=== PATIENT | female | born 1995 | race Two or more races ===

== ENCOUNTER → 2025-01-11 | Outpatient (CLI) | payer BC ==
[2025-01-11 11:45] LABS: Basophils # (auto) 0.1 10 ^3/uL (0-0.2); Basophils % (auto) 0.7 % (0.0-2.0); Eosinophils # (auto) 0.2 10 ^3/uL (0-0.8); Eosinophils % (auto) 1.8 % (0.0-7.0); Hematocrit 41.1 % (36.0-46.0); Hemoglobin 14.5 g/dL (12.2-16.2); Lymphocytes # (auto) 2.5 10 ^3/uL (0.4-5.4); Lymphocytes % (auto) 20.1 % (10.0-50.0); Mean Corpuscular Hemoglobin 31.4 pg (28.0-32.0); Mean Corpuscular Hgb Conc. 35.2 g/dL (32.0-36.0); Mean Corpuscular Volume 89.3 fL (80.0-100.0); Monocytes # (auto) 0.7 10 ^3/uL (0-1.3); Monocytes % (auto) 5.6 % (0.0-12.0); Neutrophils # (auto) 8.9 10 ^3/uL (1.6-8.6); Neutrophils % (auto) 71.8 % (37.0-80.0); Platelet Count (auto) 310 10^3/uL (140-450); Red Cell Distribution Width 12.5 % (11.8-14.3); White Blood Cell 12.4 10^3/uL (4.4-10.8)
[2025-01-11 11:46] LABS: Urine Bacteria FEW /hpf (None Seen); Urine Blood Negative /uL (Negative); Urine Clarity Clear (Clear); Urine Color Light-Yellow (Yellow); Urine Mucus FEW (None Seen); Urine Protein, UAD Negative (Negative); Urine Specific Gravity 1.012 (1.001-1.035); Urine Squamous Epithelial Cell FEW /hpf (<5); Urine Urobilinogen Normal (Negative); Urine WBC 3 /HPF (0-5)
[2025-01-11 12:02] LABS: Alanine Aminotransferase 30 U/L (7-40); Alkaline Phosphatase 53 U/L (46-116); Anion Gap 12 (5-15); Aspartate Aminotransferase 18 U/L (13-40); BUN/Creatinine Ratio 8.2 (10.0-20.0); Carbon Dioxide 21 mmol/L (20-31); Chloride 103 mmol/L (98-107); Glucose 81 mg/dL (74-106); Potassium 3.7 mmol/L (3.5-5.1); Sodium 136 mmol/L (136-145); Triglycerides 146 mg/dL (< 150)
[2025-01-11 12:03] LABS: Bilirubin, Total 0.9 mg/dL (0.2-1.0)
[2025-01-11 12:04] LABS: Thyroid Stimulating Hormone 1.19 uIU/mL (0.55-4.78)
[2025-01-11 12:05] LABS: Albumin 4.9 g/dL (3.2-4.8); Blood Urea Nitrogen 5 mg/dL (9-23); Calcium 10.7 mg/dL (8.7-10.4); Cholesterol 238 mg/dL (< 200); HDL Cholesterol 69 mg/dL (40-59); LDL Cholesterol 160 mg/dL (< 100)
[2025-01-11 12:14] LABS: Beta HCG, Quantitative 88572.6 mIU/mL (1.5-4.2)
[2025-01-13 04:06] LABS: Chlamydia Trachomatis, NAA Negative (Negative); Neisseria gonorrhoeae, NAA Negative (Negative)
== END | disposition home or self-care (01) ==
LOC: LAB 10:49
PROVIDERS: ATTEND Nurse Practitioner Family
DX: Z32.01 Encounter for pregnancy test, result positive (principal)
CPT/HCPCS: 36415; 80053; 80061; 81001; 81025; 83036; 84443; 84702; 85025; 86703; 86762; 86780; 86850; 86900; 86901; 87086; 87340; 87902

== ENCOUNTER 2025-03-12 09:16 | Observation (INO) | payer BC ==
[2025-03-12 11:16] LABS: Vaginal Bacteria Many; Vaginal Clue Cells Few; Vaginal Epithelial Cells Many; Vaginal Trichomonas Not Present
[2025-03-12] MEDS ORDERED: METR-344 PO ×2 (11:28→12:12)
--- NOTE | 2025-03-12 16:18 | DVHDS2 ---
Physician Discharge Progress N Final Diagnosis: BV Problems List: (1) 22 weeks gestation of (2) Bacterial vaginosis in Operations or Procedures: Operations or Procedures S: 29yo IUP@22.3wks presents to OB triage with c/o leaking of fluid this morning. Denies VB/CARRILLO/vision changes/RUQ pain. Endorses +FM. Denies sex in the last [address] Carter, uncomplicated. O: VSS FHTs 140 SSE by RN: negative pooling and nitrazine Laboratory Tests Test 03/12/25 09:50 Range/Units Placental Qlcec-0-Nhhihewtxclhd Negative Vaginal WBC (Wet Prep) Many Vaginal RBC (Wet Prep) Rare Vaginal Epithelial Cells (Wet Prep) Many Vaginal Bacteria (Wet Prep) Many Vaginal Trichomonas (Wet Prep) Not present Vaginal Yeast (Wet Prep) None seen Vaginal Clue Cells (Wet Prep) Few A: 29yo IUP@22.3wks BV P: D/C home Avoid sex for the next 7 days Take daily women's probiotic OTC supplement SAB precautions reviewed Dr. Carter consulted, agrees with POC Condition on Discharge: Stable Disposition: Home Discharge Instructions: Diet: Regular Activity: No Restrictions, As Tolerated Medications: see med list Follow Up Care: Specialist: f/u with Dr. Carter as scheduled Discharge Statement: "Patient was advised to return to the ER or call 911 if any headaches, dizziness, shortness of breath, chest pain, abdominal pain, bleeding, fevers, or worsening of medical condition. Patient was counseled about treatment plan, medications, possible side effects, patientverbalized understanding. All questions were answered to the best of my ability. This discharge took greater then 30 minutes in planning, reviewing documentation, counseling the patient, and discussing with other team members." Visit Coding OBGYN Date of Service: Mar 12, 2025 Billing Provider: APOLONIA SOLER CNM TONGUE AND QUARTER STITCHER Common Visit Codes: [id number] OBS CARE (HIGH) TONGUE AND QUARTER STITCHER Procedure Codes: 96354-82- NON-STRESS TEST (doppler FHR) APOLONIA SOLER CNM Mar 12, 2025 16:18
== END 2025-03-12 11:38 | disposition home or self-care (01) ==
LOC: UNDOADMOB 09:16 → LDRP 09:16 → UNDODISOB 11:38
PROVIDERS: ADMIT Obstetrics & Gynecology; ATTEND Obstetrics & Gynecology
DX: O23.592 Infection of other part of genital tract in pregnancy, second trimester (principal); B96.89 Other specified bacterial agents as the cause of diseases classified elsewhere; Z3A.22 22 weeks gestation of pregnancy; Z98.890 Other specified postprocedural states; Z79.899 Other long term (current) drug therapy
CPT/HCPCS: 81002; 84112; 87210; 94760; G0378; 59025

== ENCOUNTER → 2025-05-03 | Outpatient (CLI) | payer BC ==
[~2025-05-03] MED LIST: METR-344 PO
[2025-05-03 09:39] LABS: Hematocrit 36.5 % (36.0-46.0); Hemoglobin 12.8 g/dL (12.2-16.2); Mean Corpuscular Hemoglobin 32.2 pg (28.0-32.0); Mean Corpuscular Volume 92.0 fL (80.0-100.0); Nucleated Red Blood Cells % 0.0 %
== END | disposition home or self-care (01) ==
LOC: LAB 09:10
PROVIDERS: ATTEND Obstetrics & Gynecology
DX: Z34.00 Encounter for supervision of normal first pregnancy, unspecified trimester (principal); Z3A.00 Weeks of gestation of pregnancy not specified
CPT/HCPCS: 36415; 82951; 83036; 85025

== ENCOUNTER 2025-06-11 08:46 | Outpatient (CLI) | payer BC ==
[2025-06-11 09:09] LABS: Hematocrit 37.8 % (36.0-46.0); Hemoglobin 13.0 g/dL (12.2-16.2); Mean Corpuscular Hemoglobin 31.4 pg (28.0-32.0); Mean Corpuscular Volume 91.6 fL (80.0-100.0); Nucleated Red Blood Cells % 0.1 %
[2025-06-13 05:08] LABS: Chlamydia Trachomatis, NAA Negative (Negative); Neisseria gonorrhoeae, NAA Negative (Negative)
== END 2025-06-11 17:00 | disposition home or self-care (01) ==
LOC: LAB 08:46
PROVIDERS: ATTEND Obstetrics & Gynecology
DX: Z34.80 Encounter for supervision of other normal pregnancy, unspecified trimester (principal); Z72.51 High risk heterosexual behavior; Z3A.00 Weeks of gestation of pregnancy not specified
CPT/HCPCS: 36415; 85025; 86780

== ENCOUNTER 2025-06-27 07:50 | Inpatient (IN) | payer BC ==
[~2025-06-27] VITALS: Ht 157.5 cm; Wt 81.6 kg
[2025-06-27] MEDS ORDERED: BUTORPHANOL TARTRATE 2 MG/1 ML VIAL IV PRN ×2 (08:15)
[2025-06-27 09:09] LABS: Urine Protein, UAD Negative (Negative)
--- NOTE | 2025-06-27 09:20 | DVHHP ---
ADMIT DATE: 06/27/2025 CHIEF COMPLAINT: Labor. HISTORY OF PRESENT ILLNESS: The patient is a 29-year-old 1 with EDC 07/13, estimated gestational age of 37+ weeks admitted for labor. The patient was noted to be 5 cm, in active labor. Denies having vaginal bleeding or rupture of membrane. PAST MEDICAL HISTORY: None. PAST SURGICAL HISTORY: None. SOCIAL HISTORY: None. FAMILY HISTORY: None. OBSTETRIC/GYNECOLOGIC HISTORY: Primigravid. ALLERGIES: No known drug allergies. REVIEW OF SYSTEMS: Consistent with HPI. PHYSICAL EXAMINATION: VITAL SIGNS: Stable, afebrile. HEENT: Within normal limits. CARDIOVASCULAR: Regular rate and rhythm. LUNGS: Clear to auscultation. BREASTS: Symmetrical, no masses. ABDOMEN: Gravid. PELVIC: 5 cm, 50, -2. EXTREMITIES: No clubbing, cyanosis or edema. IMPRESSION: Intrauterine at 37 weeks, in labor. PLAN: Expectant vaginal delivery. Informed consent obtained. Scarlett Carter DO MZ/FELI TID: [id number] RECEIPT: [id number]
[2025-06-27 09:30] LABS: Amphetamine Screen, Urine Neg (NEGATIVE); Barbiturate Scree,Urine Neg (NEGATIVE); Benzodiazephine Screen, Urine Neg (NEGATIVE); Cannabinoid Screen, Urine Neg (NEGATIVE); Cocaine Screen, Urine Neg (NEGATIVE); Opiate Scree,Urine Neg (NEGATIVE); Phencyclidine Screen, Urine Neg (NEGATIVE)
[2025-06-27] MEDS: LACTATED RINGER'S 1,000 ML IV SCH (09:33)
[2025-06-27] MEDS ORDERED: ONDANSETRON HCL 4 MG/2 ML VIAL IV PRN (09:45)
[2025-06-27 09:58] LABS: Hematocrit 35.9 % (36.0-46.0); Hemoglobin 12.4 g/dL (12.2-16.2); Mean Corpuscular Hemoglobin 31.8 pg (28.0-32.0); Mean Corpuscular Volume 92.1 fL (80.0-100.0); Nucleated Red Blood Cells % 0.1 %
[2025-06-27 10:12] LABS: Alanine Aminotransferase 12 U/L (7-40); Albumin 3.6 g/dL (3.2-4.8); Alkaline Phosphatase 108 U/L (46-116); Anion Gap 12 (5-15); BUN/Creatinine Ratio 7.8 (10.0-20.0); Bilirubin, Total 0.6 mg/dL (0.2-1.0); Blood Urea Nitrogen < 5 mg/dL (9-23); Calcium 8.9 mg/dL (8.7-10.4); Carbon Dioxide 22 mmol/L (20-31); Chloride 106 mmol/L (98-107); Glucose 76 mg/dL (74-106); Potassium 3.9 mmol/L (3.5-5.1); Sodium 140 mmol/L (136-145); Total Protein 6.2 g/dL (5.7-8.2)
[2025-06-27 10:24] LABS: INR 0.92 (0.9-1.15); Partial Thromboplastin Time 25.5 SEC (24.5-34.5); Prothrombin Time 9.8 sec (9.3-11.8)
[2025-06-27] MEDS: PENICILLIN G POT 5MIL/D5 50ML 50 ML IV ONE ×2 (10:24→11:04)
[2025-06-27] MEDS: WITCH HAZEL-GLYCERIN PAD TOP PRN (10:26)
[2025-06-27] MEDS: PHISODERM TOP SOLN 240ML BTL TOP PRN (10:26)
[2025-06-27] MEDS: DERMOPLAST 60ML BOTTLE TOP PRN (10:26)
--- NOTE | 2025-06-27 12:27 | DVHPN2 ---
Chief Complaints Patient reports: No new complaints Nursing reports: No new complaints Objective Medications Current Medications Medications (Trade) Dose Ordered Sig/Perla Route PRN Reason Start Time Stop Time Status Last Admin Benzocaine (Dermoplast) 1 applic PRN PRN TOP PERINEAL AREA DISCOMFORT 06/27/25 08:15 06/27/25 10:26 Butorphanol Tartrate (Stadol Injection) 1 mg Q4HPRN PRN IV MODERATE PAIN (4-6 PAIN SCALE) 06/27/25 08:15 Butorphanol Tartrate (Stadol Injection) 2 mg Q4HPRN PRN IV SEVERE PAIN (7-10 PAIN SCALE) 06/27/25 08:15 Lactated Ringer's 1,000 ml @ 125 mls/hr Q8H IV 06/27/25 08:15 06/27/25 09:33 Lidocaine HCl (Xylocaine) 20 ml ONCE PRN IJ PERINEAL AREA DISCOMFORT 06/27/25 08:15 Ondansetron HCl (Zofran) 4 mg Q4HPRN PRN IV NAUSEA / VOMITING 06/27/25 09:45 Penicillin G Potassium 0753175 units/Dextrose 50 ml @ 100 mls/hr Q4H IV 06/27/25 13:45 Sodium Lauryl Sulfate (Phisoderm) 240 ml PRN PRN TOP PERINEAL AREA DISCOMFORT 06/27/25 08:15 06/27/25 10:26 Witch Bhakti (Tucks) 1 pad PRN PRN TOP PERINEAL AREA DISCOMFORT 06/27/25 08:15 06/27/25 10:26 Others ve-7cm/60/-2 Studies Laboratory Tests 06/27/25 09:09 Test 06/27/25 09:09 Range/Units Serum Glucose 76 74-106 mg/dL Ass/Plan Assessment labor Plan pt is refusing pitocin wants to do all natural Visit Coding OBGYN Date of Service: Jun 27, 2025 Billing Provider: CHETNA NIELSON DO CIVIL ENGINEERING TEACHER Common Visit Codes: [id number] OBS CARE (HIGH) CIVIL ENGINEERING TEACHER Procedure Codes: 67501-49- NON-STRESS TEST CHETNA NIELSON DO Jun 27, 2025 12:27
[2025-06-27] MEDS: PENICILLIN G POTASSIUM 2,500,000 UNITS in D5W 5% 50 ML IV SCH (15:05)
[2025-06-27] MEDS ORDERED: LACTATED RINGER'S 1,000 ML IV ONE (18:15)
--- NOTE | 2025-06-27 19:38 | DVHPN2 ---
CNM Labor Progress Note Date and Time Seen Date Seen: Jun 27, 2025 Time Seen: 19:15 Subjective Patient reports: No new complaints, Feels better Objective Vital Signs VSS Monitoring Method Monitoring Method: External Heart Rate Heart Rate Baseline: 145 Heart Rate Variability: Moderate Presence of FHR Accelerations: Yes Presence of FHR Decelerations: No Changes in Trends of Patterns: No Are all 5 Components of the FH: Yes Contractions Contractions Frequency: Other (Q2-3min) Duration of Contraction: 70 Contractions Intensity: Moderate Contractions Resting Tone: Relaxed Membranes Membranes: Intact Vaginal Exam Vag Exam Deferred: Yes Medications Medications - Pitocin: No Medication - Epidural: Yes Lab Results Lab Results Current Medications Medications (Trade) Dose Ordered Sig/Perla Start Time Stop Time Status Last Admin Dose Admin Lactated Ringer's 1,000 ml @ 125 mls/hr Q8H 06/27/25 08:15 06/27/25 18:55 125 MLS/HR Ladi Ya (Tucks) 1 pad PRN PRN 06/27/25 08:15 06/27/25 10:26 1 PAD Sodium Lauryl Sulfate (Phisoderm) 240 ml PRN PRN 06/27/25 08:15 06/27/25 10:26 240 ML Benzocaine (Dermoplast) 1 applic PRN PRN 06/27/25 08:15 06/27/25 10:26 1 APPLIC Butorphanol Tartrate (Stadol Injection) 1 mg Q4HPRN PRN 06/27/25 08:15 Butorphanol Tartrate (Stadol Injection) 2 mg Q4HPRN PRN 06/27/25 08:15 Lidocaine HCl (Xylocaine) 20 ml ONCE PRN 06/27/25 08:15 06/28/25 03:27 20 ML Oxytocin 500 ml @ 999 mls/hr Q31M ONCE 06/27/25 09:30 06/27/25 10:00 DC 06/28/25 02:48 999 MLS/HR Oxytocin 500 ml @ 125 mls/hr Q4H ONCE 06/27/25 10:00 06/27/25 13:59 DC 06/28/25 02:51 125 MLS/HR Ondansetron HCl (Zofran) 4 mg Q4HPRN PRN 06/27/25 09:45 Penicillin G Potassium 50 ml @ 100 mls/hr ONCE ONCE 06/27/25 09:45 06/27/25 10:18 DC 06/27/25 11:04 100 MLS/HR Penicillin G Potassium 3251723 units/Dextrose 50 ml @ 100 mls/hr Q4H 06/27/25 13:45 06/27/25 23:23 100 MLS/HR Ephedrine Sulfate (ePHEDrine SULFATE) 10 mg PRN ONCE 06/27/25 18:15 06/27/25 18:16 DC Lactated Ringer's 1,000 ml @ 1,000 mls/hr Q1H ONCE 06/27/25 18:15 06/27/25 19:14 DC Acetaminophen (Ofirmev) 1,000 mg ONCE ONCE 06/28/25 01:45 06/28/25 01:46 DC 06/28/25 01:44 1,000 MG Gentamicin Sulfate 250 mg/ Dextrose 106.25 ml @ 100 mls/ hr ONCE ONCE 06/28/25 01:45 06/28/25 02:48 DC Ampicillin Sodium 1 gm/Sodium Chloride 100 ml @ 200 mls/hr Q6HR 06/28/25 01:45 06/28/25 04:22 DC Gentamicin Sulfate 80 mg/ Dextrose 102 ml @ 100 mls/hr ONCE ONCE 06/28/25 02:30 06/28/25 03:31 DC 06/28/25 04:17 100 MLS/HR Ampicillin Sodium 1 gm/Sodium Chloride 100 ml @ 200 mls/hr Q6HR 06/28/25 08:00 Laboratory Tests Test 06/27/25 09:09 06/27/25 08:52 06/27/25 08:51 Range/Units White Blood Count 11.4 H 4.4-10.8 10^3/uL Red Blood Count 3.89 L 4.0-5.20 10^6/uL Hemoglobin 12.4 12.2-16.2 g/dL Hematocrit 35.9 L 36.0-46.0 % Mean Corpuscular Volume 92.1 80.0-100.0 fL Mean Corpuscular Hemoglobin 31.8 28.0-32.0 pg Mean Corpuscular Hemoglobin Concent 34.5 32.0-36.0 g/dL Red Cell Distribution Width 13.3 11.8-14.3 % Platelet Count 227 140-450 10^3/uL Mean Platelet Volume 10.6 6.9-10.8 fL Neutrophils (%) (Auto) 75.3 37.0-80.0 % Lymphocytes (%) (Auto) 15.3 10.0-50.0 % Monocytes (%) (Auto) 7.7 0.0-12.0 % Eosinophils (%) (Auto) 1.4 0.0-7.0 % Basophils (%) (Auto) 0.3 0.0-2.0 % Neutrophils # (Auto) 8.6 1.6-8.6 10 ^3/uL Lymphocytes # (Auto) 1.7 0.4-5.4 10 ^3/uL Monocytes # (Auto) 0.9 0-1.3 10 ^3/uL Eosinophils # (Auto) 0.2 0-0.8 10 ^3/uL Basophils # (Auto) 0 0-0.2 10 ^3/uL Nucleated Red Blood Cells 0.1 % Prothrombin Time 9.8 9.3-11.8 sec Prothrombin Time INR 0.92 0.9-1.15 Activated Partial Thromboplast Time 25.5 24.5-34.5 SEC Sodium Level 140 136-145 mmol/L Potassium Level 3.9 3.5-5.1 mmol/L Chloride Level 106 98-107 mmol/L Carbon Dioxide Level 22 20-31 mmol/L Anion Gap 12 5-15 Blood Urea Nitrogen < 5 L 9-23 mg/dL Creatinine 0.64 0.550-1.02 mg/dL Glomerular Filtration Rate Calc 123 >90 mL/min BUN/Creatinine Ratio 7.8 L 10.0-20.0 Serum Glucose 76 74-106 mg/dL Calcium Level 8.9 8.7-10.4 mg/dL Total Bilirubin 0.6 0.2-1.0 mg/dL Aspartate Amino Transferase (AST) 19 13-40 U/L Alanine Aminotransferase (ALT) 12 7-40 U/L Alkaline Phosphatase 108 46-116 U/L Total Protein 6.2 5.7-8.2 g/dL Albumin 3.6 3.2-4.8 g/dL Treponema pallidum Antibody Non-reactive Negative Hepatitis C Antibody Negative Negative Urine Opiates Screen Neg NEGATIVE Urine Fentanyl Screen Neg NEGATIVE Urine Barbiturates Screen Neg NEGATIVE Urine Phencyclidine Screen Neg NEGATIVE Urine Amphetamines Screen Neg NEGATIVE Urine Benzodiazepines Screen Neg NEGATIVE Urine Cocaine Screen Neg NEGATIVE Urine Cannabinoids Screen Neg NEGATIVE Urine Color Light-yellow Yellow Urine Clarity Clear Clear Urine pH 6.5 5.0-9.0 Urine Specific [place] 1.015 1.001-1.035 Urine Protein Negative Negative Urine Ketones Negative Negative Urine Blood Negative Negative /uL Urine Nitrite Negative Negative Urine Bilirubin Negative Negative Urine Urobilinogen Normal Negative mg/dL Urine Leukocyte Esterase Negative Negative /uL Urine RBC 1 0 - 4 /hpf Urine Microscopic WBC 1 0-5 /HPF Urine Squamous Epithelial Cells Few <5 /hpf Urine Bacteria Few H None Seen /hpf Urine Mucus Few None Seen Urine Glucose Normal Normal mg/dL Assessment Assessment IUP at37w 5d Labor GBS unknown Category II FHR Tracing Plan Plan Reposition pt to facilitate Descent Discussed with patient option for amniotomy to facilitate labor with next cervical exam; agrees Continue EFM per policy Intrauterine resuscitation PRN Supportive care Anticipate Plan discussed with: Patient, Spouse, Other (Patient's mother and sister) Visit Coding OBGYN Date of Service: Jun 27, 2025 Billing Provider: COLE HENRIQUEZ CNM WELL DIGGER Common Visit Codes: [id number] INP/OBS CARE(HIGH) WELL DIGGER Procedure Codes: 72079-06- NON-STRESS TEST COLE HENRIQUEZ CNM Jun 27, 2025 19:38
--- NOTE | 2025-06-27 21:11 | DVHPN2 ---
CNM Labor Progress Note Date and Time Seen Date Seen: Jun 27, 2025 Time Seen: 20:42 Subjective Patient reports: No new complaints Objective Vital Signs VSS Monitoring Method Monitoring Method: External Heart Rate Heart Rate Baseline: 155 Heart Rate Variability: Moderate Presence of FHR Accelerations: Yes Presence of FHR Decelerations: Yes Heart Rate Type of Decel: Late Decelerations (Not recurrent) Changes in Trends of Patterns: No Are all 5 Components of the FH: Yes Contractions Contractions Frequency: Other (2-4) Duration of Contraction: 80 Contractions Intensity: Moderate Contractions Resting Tone: Relaxed Membranes Membranes: Intact Vaginal Exam Vag Exam Deferred: No Vaginal Exam Dilation: 8 Vaginal Exam Effacement: 90 Vaginal Exam Station: -2 Vaginal Exam Presentation: VTX Vaginal Exam Show: Moderate Medications Medications - Pitocin: No Medication - Epidural: Yes Lab Results Lab Results Current Medications Medications (Trade) Dose Ordered Sig/Perla Start Time Stop Time Status Last Admin Dose Admin Lactated Ringer's 1,000 ml @ 125 mls/hr Q8H 06/27/25 08:15 06/27/25 18:55 125 MLS/HR Witjay Bhakti (Tucks) 1 pad PRN PRN 06/27/25 08:15 06/27/25 10:26 1 PAD Sodium Lauryl Sulfate (Phisoderm) 240 ml PRN PRN 06/27/25 08:15 06/27/25 10:26 240 ML Benzocaine (Dermoplast) 1 applic PRN PRN 06/27/25 08:15 06/27/25 10:26 1 APPLIC Butorphanol Tartrate (Stadol Injection) 1 mg Q4HPRN PRN 06/27/25 08:15 Butorphanol Tartrate (Stadol Injection) 2 mg Q4HPRN PRN 06/27/25 08:15 Lidocaine HCl (Xylocaine) 20 ml ONCE PRN 06/27/25 08:15 06/28/25 03:27 20 ML Oxytocin 500 ml @ 999 mls/hr Q31M ONCE 06/27/25 09:30 06/27/25 10:00 DC 06/28/25 02:48 999 MLS/HR Oxytocin 500 ml @ 125 mls/hr Q4H ONCE 06/27/25 10:00 06/27/25 13:59 DC 06/28/25 02:51 125 MLS/HR Ondansetron HCl (Zofran) 4 mg Q4HPRN PRN 06/27/25 09:45 Penicillin G Potassium 50 ml @ 100 mls/hr ONCE ONCE 06/27/25 09:45 06/27/25 10:18 DC 06/27/25 11:04 100 MLS/HR Penicillin G Potassium 4014010 units/Dextrose 50 ml @ 100 mls/hr Q4H 06/27/25 13:45 06/27/25 23:23 100 MLS/HR Ephedrine Sulfate (ePHEDrine SULFATE) 10 mg PRN ONCE 06/27/25 18:15 06/27/25 18:16 DC Lactated Ringer's 1,000 ml @ 1,000 mls/hr Q1H ONCE 06/27/25 18:15 06/27/25 19:14 DC Acetaminophen (Ofirmev) 1,000 mg ONCE ONCE 06/28/25 01:45 06/28/25 01:46 DC 06/28/25 01:44 1,000 MG Gentamicin Sulfate 250 mg/ Dextrose 106.25 ml @ 100 mls/ hr ONCE ONCE 06/28/25 01:45 06/28/25 02:48 DC Ampicillin Sodium 1 gm/Sodium Chloride 100 ml @ 200 mls/hr Q6HR 06/28/25 01:45 06/28/25 04:22 DC Gentamicin Sulfate 80 mg/ Dextrose 102 ml @ 100 mls/hr ONCE ONCE 06/28/25 02:30 06/28/25 03:31 DC 06/28/25 04:17 100 MLS/HR Ampicillin Sodium 1 gm/Sodium Chloride 100 ml @ 200 mls/hr Q6HR 06/28/25 08:00 Laboratory Tests Test 06/27/25 09:09 06/27/25 08:52 06/27/25 08:51 Range/Units White Blood Count 11.4 H 4.4-10.8 10^3/uL Red Blood Count 3.89 L 4.0-5.20 10^6/uL Hemoglobin 12.4 12.2-16.2 g/dL Hematocrit 35.9 L 36.0-46.0 % Mean Corpuscular Volume 92.1 80.0-100.0 fL Mean Corpuscular Hemoglobin 31.8 28.0-32.0 pg Mean Corpuscular Hemoglobin Concent 34.5 32.0-36.0 g/dL Red Cell Distribution Width 13.3 11.8-14.3 % Platelet Count 227 140-450 10^3/uL Mean Platelet Volume 10.6 6.9-10.8 fL Neutrophils (%) (Auto) 75.3 37.0-80.0 % Lymphocytes (%) (Auto) 15.3 10.0-50.0 % Monocytes (%) (Auto) 7.7 0.0-12.0 % Eosinophils (%) (Auto) 1.4 0.0-7.0 % Basophils (%) (Auto) 0.3 0.0-2.0 % Neutrophils # (Auto) 8.6 1.6-8.6 10 ^3/uL Lymphocytes # (Auto) 1.7 0.4-5.4 10 ^3/uL Monocytes # (Auto) 0.9 0-1.3 10 ^3/uL Eosinophils # (Auto) 0.2 0-0.8 10 ^3/uL Basophils # (Auto) 0 0-0.2 10 ^3/uL Nucleated Red Blood Cells 0.1 % Prothrombin Time 9.8 9.3-11.8 sec Prothrombin Time INR 0.92 0.9-1.15 Activated Partial Thromboplast Time 25.5 24.5-34.5 SEC Sodium Level 140 136-145 mmol/L Potassium Level 3.9 3.5-5.1 mmol/L Chloride Level 106 98-107 mmol/L Carbon Dioxide Level 22 20-31 mmol/L Anion Gap 12 5-15 Blood Urea Nitrogen < 5 L 9-23 mg/dL Creatinine 0.64 0.550-1.02 mg/dL Glomerular Filtration Rate Calc 123 >90 mL/min BUN/Creatinine Ratio 7.8 L 10.0-20.0 Serum Glucose 76 74-106 mg/dL Calcium Level 8.9 8.7-10.4 mg/dL Total Bilirubin 0.6 0.2-1.0 mg/dL Aspartate Amino Transferase (AST) 19 13-40 U/L Alanine Aminotransferase (ALT) 12 7-40 U/L Alkaline Phosphatase 108 46-116 U/L Total Protein 6.2 5.7-8.2 g/dL Albumin 3.6 3.2-4.8 g/dL Treponema pallidum Antibody Non-reactive Negative Hepatitis C Antibody Negative Negative Urine Opiates Screen Neg NEGATIVE Urine Fentanyl Screen Neg NEGATIVE Urine Barbiturates Screen Neg NEGATIVE Urine Phencyclidine Screen Neg NEGATIVE Urine Amphetamines Screen Neg NEGATIVE Urine Benzodiazepines Screen Neg NEGATIVE Urine Cocaine Screen Neg NEGATIVE Urine Cannabinoids Screen Neg NEGATIVE Urine Color Light-yellow Yellow Urine Clarity Clear Clear Urine pH 6.5 5.0-9.0 Urine Specific [place] 1.015 1.001-1.035 Urine Protein Negative Negative Urine Ketones Negative Negative Urine Blood Negative Negative /uL Urine Nitrite Negative Negative Urine Bilirubin Negative Negative Urine Urobilinogen Normal Negative mg/dL Urine Leukocyte Esterase Negative Negative /uL Urine RBC 1 0 - 4 /hpf Urine Microscopic WBC 1 0-5 /HPF Urine Squamous Epithelial Cells Few <5 /hpf Urine Bacteria Few H None Seen /hpf Urine Mucus Few None Seen Urine Glucose Normal Normal mg/dL Assessment Assessment <> IUP at 37w 5d <> Labor <> GBS unknown Category II FHR tracing; moderate variability Plan Plan Amniotomy - done, clear fluid Re-position to facilitate descent Intra-uterine resuscitation PRN Supportive care Anticipate Plan discussed with: Patient, Spouse, Other (Patient's mother and sister) Visit Coding OBGYN Date of Service: Jun 27, 2025 Billing Provider: COLE HENRIQUEZ CNM MODEL AND PATTERN SUPERVISOR Common Visit Codes: [id number] INP/OBS CARE(HIGH) MODEL AND PATTERN SUPERVISOR Procedure Codes: 81245-98- NON-STRESS TEST COLE HENRIQUEZ CNM Jun 27, 2025 21:11
--- NOTE | 2025-06-27 23:54 | DVHPN2 ---
CNM Labor Progress Note Date and Time Seen Date Seen: Jun 27, 2025 Time Seen: 23:26 Subjective Patient reports: No new complaints, Other (Feels pressure) Objective Vital Signs VSS Monitoring Method Monitoring Method: External Heart Rate Heart Rate Baseline: 155 Heart Rate Type of Decel: Late Decelerations (Not recurrent) Contractions Contractions Frequency: Other (Q2-4min) Duration of Contraction: 60 Contractions Intensity: Moderate Contractions Resting Tone: Relaxed Membranes Membranes: Ruptured Amniotic Fluid Color: Clear Vaginal Exam Vag Exam Deferred: No Vaginal Exam Dilation: 10 Vaginal Exam Effacement: 100 Vaginal Exam Station: -1 Vaginal Exam Presentation: VTX Vaginal Exam Show: Small Medications Medications - Pitocin: No Medication - Epidural: Yes Lab Results Lab Results Current Medications Medications (Trade) Dose Ordered Sig/Perla Start Time Stop Time Status Last Admin Dose Admin Lactated Ringer's 1,000 ml @ 125 mls/hr Q8H 06/27/25 08:15 06/27/25 18:55 125 MLS/HR Ladi Ya (Tucks) 1 pad PRN PRN 06/27/25 08:15 06/27/25 10:26 1 PAD Sodium Lauryl Sulfate (Phisoderm) 240 ml PRN PRN 06/27/25 08:15 06/27/25 10:26 240 ML Benzocaine (Dermoplast) 1 applic PRN PRN 06/27/25 08:15 06/27/25 10:26 1 APPLIC Butorphanol Tartrate (Stadol Injection) 1 mg Q4HPRN PRN 06/27/25 08:15 Butorphanol Tartrate (Stadol Injection) 2 mg Q4HPRN PRN 06/27/25 08:15 Lidocaine HCl (Xylocaine) 20 ml ONCE PRN 06/27/25 08:15 06/28/25 03:27 20 ML Oxytocin 500 ml @ 999 mls/hr Q31M ONCE 06/27/25 09:30 06/27/25 10:00 DC 06/28/25 02:48 999 MLS/HR Oxytocin 500 ml @ 125 mls/hr Q4H ONCE 06/27/25 10:00 06/27/25 13:59 DC 06/28/25 02:51 125 MLS/HR Ondansetron HCl (Zofran) 4 mg Q4HPRN PRN 06/27/25 09:45 Penicillin G Potassium 50 ml @ 100 mls/hr ONCE ONCE 06/27/25 09:45 06/27/25 10:18 DC 06/27/25 11:04 100 MLS/HR Penicillin G Potassium 4506578 units/Dextrose 50 ml @ 100 mls/hr Q4H 06/27/25 13:45 06/27/25 23:23 100 MLS/HR Ephedrine Sulfate (ePHEDrine SULFATE) 10 mg PRN ONCE 06/27/25 18:15 06/27/25 18:16 DC Lactated Ringer's 1,000 ml @ 1,000 mls/hr Q1H ONCE 06/27/25 18:15 06/27/25 19:14 DC Acetaminophen (Ofirmev) 1,000 mg ONCE ONCE 06/28/25 01:45 06/28/25 01:46 DC 06/28/25 01:44 1,000 MG Gentamicin Sulfate 250 mg/ Dextrose 106.25 ml @ 100 mls/ hr ONCE ONCE 06/28/25 01:45 06/28/25 02:48 DC Ampicillin Sodium 1 gm/Sodium Chloride 100 ml @ 200 mls/hr Q6HR 06/28/25 01:45 06/28/25 04:22 DC Gentamicin Sulfate 80 mg/ Dextrose 102 ml @ 100 mls/hr ONCE ONCE 06/28/25 02:30 06/28/25 03:31 DC 06/28/25 04:17 100 MLS/HR Ampicillin Sodium 1 gm/Sodium Chloride 100 ml @ 200 mls/hr Q6HR 06/28/25 08:00 Laboratory Tests Test 06/27/25 09:09 06/27/25 08:52 06/27/25 08:51 Range/Units White Blood Count 11.4 H 4.4-10.8 10^3/uL Red Blood Count 3.89 L 4.0-5.20 10^6/uL Hemoglobin 12.4 12.2-16.2 g/dL Hematocrit 35.9 L 36.0-46.0 % Mean Corpuscular Volume 92.1 80.0-100.0 fL Mean Corpuscular Hemoglobin 31.8 28.0-32.0 pg Mean Corpuscular Hemoglobin Concent 34.5 32.0-36.0 g/dL Red Cell Distribution Width 13.3 11.8-14.3 % Platelet Count 227 140-450 10^3/uL Mean Platelet Volume 10.6 6.9-10.8 fL Neutrophils (%) (Auto) 75.3 37.0-80.0 % Lymphocytes (%) (Auto) 15.3 10.0-50.0 % Monocytes (%) (Auto) 7.7 0.0-12.0 % Eosinophils (%) (Auto) 1.4 0.0-7.0 % Basophils (%) (Auto) 0.3 0.0-2.0 % Neutrophils # (Auto) 8.6 1.6-8.6 10 ^3/uL Lymphocytes # (Auto) 1.7 0.4-5.4 10 ^3/uL Monocytes # (Auto) 0.9 0-1.3 10 ^3/uL Eosinophils # (Auto) 0.2 0-0.8 10 ^3/uL Basophils # (Auto) 0 0-0.2 10 ^3/uL Nucleated Red Blood Cells 0.1 % Prothrombin Time 9.8 9.3-11.8 sec Prothrombin Time INR 0.92 0.9-1.15 Activated Partial Thromboplast Time 25.5 24.5-34.5 SEC Sodium Level 140 136-145 mmol/L Potassium Level 3.9 3.5-5.1 mmol/L Chloride Level 106 98-107 mmol/L Carbon Dioxide Level 22 20-31 mmol/L Anion Gap 12 5-15 Blood Urea Nitrogen < 5 L 9-23 mg/dL Creatinine 0.64 0.550-1.02 mg/dL Glomerular Filtration Rate Calc 123 >90 mL/min BUN/Creatinine Ratio 7.8 L 10.0-20.0 Serum Glucose 76 74-106 mg/dL Calcium Level 8.9 8.7-10.4 mg/dL Total Bilirubin 0.6 0.2-1.0 mg/dL Aspartate Amino Transferase (AST) 19 13-40 U/L Alanine Aminotransferase (ALT) 12 7-40 U/L Alkaline Phosphatase 108 46-116 U/L Total Protein 6.2 5.7-8.2 g/dL Albumin 3.6 3.2-4.8 g/dL Treponema pallidum Antibody Non-reactive Negative Hepatitis C Antibody Negative Negative Urine Opiates Screen Neg NEGATIVE Urine Fentanyl Screen Neg NEGATIVE Urine Barbiturates Screen Neg NEGATIVE Urine Phencyclidine Screen Neg NEGATIVE Urine Amphetamines Screen Neg NEGATIVE Urine Benzodiazepines Screen Neg NEGATIVE Urine Cocaine Screen Neg NEGATIVE Urine Cannabinoids Screen Neg NEGATIVE Urine Color Light-yellow Yellow Urine Clarity Clear Clear Urine pH 6.5 5.0-9.0 Urine Specific [place] 1.015 1.001-1.035 Urine Protein Negative Negative Urine Ketones Negative Negative Urine Blood Negative Negative /uL Urine Nitrite Negative Negative Urine Bilirubin Negative Negative Urine Urobilinogen Normal Negative mg/dL Urine Leukocyte Esterase Negative Negative /uL Urine RBC 1 0 - 4 /hpf Urine Microscopic WBC 1 0-5 /HPF Urine Squamous Epithelial Cells Few <5 /hpf Urine Bacteria Few H None Seen /hpf Urine Mucus Few None Seen Urine Glucose Normal Normal mg/dL Assessment Assessment > IUP at 37w 6d > 2nd Stage of Labor > Category II FHR Tracing > GBS Status Unknown Plan Plan Reposition pt to facilitate descent, pt to labor down Intrauterine resuscitation PRN Will re-assess in 30- 60minutes fo rpossibility of starting to push Supportive care Anticipate Plan discussed with: Patient, Other (Patient's mother and sister ) Visit Coding OBGYN Date of Service: Jun 27, 2025 Billing Provider: COLE HENRIQUEZ CNM PLAYERS CLUB REPRESENTATIVE Common Visit Codes: [id number] INP/OBS CARE(HIGH) PLAY[employer] CLUB REPRESENTATIVE Procedure Codes: 55685-73- NON-STRESS TEST COLE HENRIQUEZ CNM Jun 27, 2025 23:54
[2025-06-28] MEDS: ACETAMINOPHEN IV 1000 MG/100ML (10MG/ML) IV ONE (01:44)
[2025-06-28] MEDS ORDERED: AMPICILLIN INJ 1 GM in SODIUM CHL 0.9% 100 ML IV SCH (01:45)
[2025-06-28] MEDS: D5W 5% IV ONE (01:45)
[2025-06-28] MEDS: GENTAMICIN SULFATE IV ONE (01:45)
[2025-06-28] MEDS: ROPIVACAINE HCL 100 ML ONE ×2 (01:51→01:52)
--- NOTE | 2025-06-28 02:07 | DVHPN2 ---
CNM Labor Progress Note Date and Time Seen Date Seen: Jun 28, 2025 Time Seen: 01:30 Subjective Patient reports: No new complaints Monitoring Method Monitoring Method: External Heart Rate Heart Rate Baseline: 180 Heart Rate Variability: Minimal, Moderate Presence of FHR Decelerations: Yes Heart Rate Type of Decel: Late Decelerations (Not recurrent) Contractions Contractions Frequency: Other (Q2min) Duration of Contraction: 60 Contractions Intensity: Strong Membranes Membranes: Ruptured Amniotic Fluid Color: Clear Vaginal Exam Vag Exam Deferred: No (Pt pushing with contraction) Vaginal Exam Station: 0 Vaginal Exam Presentation: VTX Vaginal Exam Show: Moderate Medications Medications - Pitocin: No Medication - Epidural: Yes Lab Results Lab Results Current Medications Medications (Trade) Dose Ordered Sig/Perla Start Time Stop Time Status Last Admin Dose Admin Lactated Ringer's 1,000 ml @ 125 mls/hr Q8H 06/27/25 08:15 06/27/25 18:55 125 MLS/HR Ladi Ya (Tucks) 1 pad PRN PRN 06/27/25 08:15 06/27/25 10:26 1 PAD Sodium Lauryl Sulfate (Phisoderm) 240 ml PRN PRN 06/27/25 08:15 06/27/25 10:26 240 ML Benzocaine (Dermoplast) 1 applic PRN PRN 06/27/25 08:15 06/27/25 10:26 1 APPLIC Butorphanol Tartrate (Stadol Injection) 1 mg Q4HPRN PRN 06/27/25 08:15 Butorphanol Tartrate (Stadol Injection) 2 mg Q4HPRN PRN 06/27/25 08:15 Lidocaine HCl (Xylocaine) 20 ml ONCE PRN 06/27/25 08:15 06/28/25 03:27 20 ML Oxytocin 500 ml @ 999 mls/hr Q31M ONCE 06/27/25 09:30 06/27/25 10:00 DC 06/28/25 02:48 999 MLS/HR Oxytocin 500 ml @ 125 mls/hr Q4H ONCE 06/27/25 10:00 06/27/25 13:59 DC 06/28/25 02:51 125 MLS/HR Ondansetron HCl (Zofran) 4 mg Q4HPRN PRN 06/27/25 09:45 Penicillin G Potassium 50 ml @ 100 mls/hr ONCE ONCE 06/27/25 09:45 06/27/25 10:18 DC 06/27/25 11:04 100 MLS/HR Penicillin G Potassium 3376191 units/Dextrose 50 ml @ 100 mls/hr Q4H 06/27/25 13:45 06/27/25 23:23 100 MLS/HR Ephedrine Sulfate (ePHEDrine SULFATE) 10 mg PRN ONCE 06/27/25 18:15 06/27/25 18:16 DC Lactated Ringer's 1,000 ml @ 1,000 mls/hr Q1H ONCE 06/27/25 18:15 06/27/25 19:14 DC Acetaminophen (Ofirmev) 1,000 mg ONCE ONCE 06/28/25 01:45 06/28/25 01:46 DC 06/28/25 01:44 1,000 MG Gentamicin Sulfate 250 mg/ Dextrose 106.25 ml @ 100 mls/ hr ONCE ONCE 06/28/25 01:45 06/28/25 02:48 DC Ampicillin Sodium 1 gm/Sodium Chloride 100 ml @ 200 mls/hr Q6HR 06/28/25 01:45 06/28/25 04:22 DC Gentamicin Sulfate 80 mg/ Dextrose 102 ml @ 100 mls/hr ONCE ONCE 06/28/25 02:30 06/28/25 03:31 DC 06/28/25 04:17 100 MLS/HR Ampicillin Sodium 1 gm/Sodium Chloride 100 ml @ 200 mls/hr Q6HR 06/28/25 08:00 Laboratory Tests Test 06/27/25 09:09 06/27/25 08:52 06/27/25 08:51 Range/Units White Blood Count 11.4 H 4.4-10.8 10^3/uL Red Blood Count 3.89 L 4.0-5.20 10^6/uL Hemoglobin 12.4 12.2-16.2 g/dL Hematocrit 35.9 L 36.0-46.0 % Mean Corpuscular Volume 92.1 80.0-100.0 fL Mean Corpuscular Hemoglobin 31.8 28.0-32.0 pg Mean Corpuscular Hemoglobin Concent 34.5 32.0-36.0 g/dL Red Cell Distribution Width 13.3 11.8-14.3 % Platelet Count 227 140-450 10^3/uL Mean Platelet Volume 10.6 6.9-10.8 fL Neutrophils (%) (Auto) 75.3 37.0-80.0 % Lymphocytes (%) (Auto) 15.3 10.0-50.0 % Monocytes (%) (Auto) 7.7 0.0-12.0 % Eosinophils (%) (Auto) 1.4 0.0-7.0 % Basophils (%) (Auto) 0.3 0.0-2.0 % Neutrophils # (Auto) 8.6 1.6-8.6 10 ^3/uL Lymphocytes # (Auto) 1.7 0.4-5.4 10 ^3/uL Monocytes # (Auto) 0.9 0-1.3 10 ^3/uL Eosinophils # (Auto) 0.2 0-0.8 10 ^3/uL Basophils # (Auto) 0 0-0.2 10 ^3/uL Nucleated Red Blood Cells 0.1 % Prothrombin Time 9.8 9.3-11.8 sec Prothrombin Time INR 0.92 0.9-1.15 Activated Partial Thromboplast Time 25.5 24.5-34.5 SEC Sodium Level 140 136-145 mmol/L Potassium Level 3.9 3.5-5.1 mmol/L Chloride Level 106 98-107 mmol/L Carbon Dioxide Level 22 20-31 mmol/L Anion Gap 12 5-15 Blood Urea Nitrogen < 5 L 9-23 mg/dL Creatinine 0.64 0.550-1.02 mg/dL Glomerular Filtration Rate Calc 123 >90 mL/min BUN/Creatinine Ratio 7.8 L 10.0-20.0 Serum Glucose 76 74-106 mg/dL Calcium Level 8.9 8.7-10.4 mg/dL Total Bilirubin 0.6 0.2-1.0 mg/dL Aspartate Amino Transferase (AST) 19 13-40 U/L Alanine Aminotransferase (ALT) 12 7-40 U/L Alkaline Phosphatase 108 46-116 U/L Total Protein 6.2 5.7-8.2 g/dL Albumin 3.6 3.2-4.8 g/dL Treponema pallidum Antibody Non-reactive Negative Hepatitis C Antibody Negative Negative Urine Opiates Screen Neg NEGATIVE Urine Fentanyl Screen Neg NEGATIVE Urine Barbiturates Screen Neg NEGATIVE Urine Phencyclidine Screen Neg NEGATIVE Urine Amphetamines Screen Neg NEGATIVE Urine Benzodiazepines Screen Neg NEGATIVE Urine Cocaine Screen Neg NEGATIVE Urine Cannabinoids Screen Neg NEGATIVE Urine Color Light-yellow Yellow Urine Clarity Clear Clear Urine pH 6.5 5.0-9.0 Urine Specific [place] 1.015 1.001-1.035 Urine Protein Negative Negative Urine Ketones Negative Negative Urine Blood Negative Negative /uL Urine Nitrite Negative Negative Urine Bilirubin Negative Negative Urine Urobilinogen Normal Negative mg/dL Urine Leukocyte Esterase Negative Negative /uL Urine RBC 1 0 - 4 /hpf Urine Microscopic WBC 1 0-5 /HPF Urine Squamous Epithelial Cells Few <5 /hpf Urine Bacteria Few H None Seen /hpf Urine Mucus Few None Seen Urine Glucose Normal Normal mg/dL Consulting with Regarding Consulted with Dr. Carter. tachycardia, maternal temp 99.7F, On Penicillin, being given Acetaminophen at this moment. Pt in 2nd stage of labor, pushing, head at 0 station. Recommendation: Give Ancef and continue to push in anticipation of . Later called back and recommended Amp & Gent instead Assessment Assessment IUP at 37w 6d 2nd Stage of Labor Category II FHR Tracing Plan Plan Continue to encourage adequate / efficient pushing Intra-uterine resuscitation PRN Supportive Care Anticipate Plan discussed with: Patient, Spouse, Other (Patient's mother and sister) Visit Coding OBGYN Date of Service: Jun 28, 2025 Billing Provider: COLE HENRIQUEZ CNM DEPARTMENT STORE GENERAL MANAGER Common Visit Codes: [id number] INP/OBS CARE(HIGH) DEPARTMENT STORE GENERAL MANAGER Procedure Codes: 85764-36- NON-STRESS TEST COLE HENRIQUEZ CNM Jun 28, 2025 02:07
[2025-06-28] MEDS ORDERED: GENTAMICIN SULFATE 0 ML ONE (02:19)
[2025-06-28] MEDS ORDERED: GENTAMICIN SULFATE 2 ML ONE (02:23)
[2025-06-28] MEDS: LACT. RINGERS/OXYTOCIN 20UNITS 500 ML IV ONE ×2 (02:48→02:51)
[2025-06-28] MEDS: AMPICILLIN SOD 1 GM VL ONE (02:59)
[2025-06-28] MEDS: LIDOCAINE 2%HCL (LOCAL ANESTH.) INJ 20ML MDV IJ PRN (03:27)
[2025-06-28] MEDS: GENTAMICIN SULFATE 80 MG in D5W 5% 100 ML IV ONE (04:17)
--- NOTE | 2025-06-28 05:43 | LDN2 ---
Labor and Delivery Note Date 06/28/25 Age 29 1 Para 0 -> 1 now AB 0 EDC 07/13/2025 EGA 37w 6d Diagnosis Vaginal Delivery: VTX Vacuum Assisted: No Placenta: Spontaneous Sex: Female Weight 3360g; 7Lbs 7oz Apgars 8 @ one minute and 9 at five minutes of life Nuchal Cord Transected: No Amniotic Fluid: Clear Anesthesia Labor Epidural Episiotomy: Yes Extension: Yes Repaired with 2-0 Chromic and 2-0 Vicryl sutures EBL 300mLs Labs Laboratory Tests 01/25/25 11:40: Hepatitis B Surface Antigen Negative, HIV (1&2) Antibody Negative, Rubella Antibody Negative Blood Bank 06/27/25 09:09: Blood Type A POSITIVE Complications None Conditions Mother and baby in stable condition Ethyl Blender Somu Comments/Significant Med Ernst At 02:21, 29yo, now delivered a viable Female infant by w/ score 8 at one & 9 @ five minutes of life. JEREMI position placed skin to skin on patient's chest. Cord clamped and cut after pulsation ceased. Cord blood and cord gas sent. Intact 3-vessel cord placenta delivered spontaneously, Lonnie. Pitocin IV bolus started. Placenta sent to pathology. Patient had labor epidural anesthesia. Midline episiotomy and 1st degree bilateral labial laceration noted and were repaired with 2-0 chromic and 2-0 Vicryl suture respectively. Cervix/vagina inspected via SSE. Cervix intact. Rectal exam performed, WNL, not involved. Rectal mucosa and sphincter intact. Fundus at U, firm, midline, and normal amount of lochia. QBL 300ml. VSS. Count correct x2. Patient to care and baby to couplet care, both stable. Visit Coding OBGYN Date of Service: Jun 28, 2025 Billing Provider: COLE HENRIQUEZ CNM LABORER ADJUSTABLE [employer] JOIST Common Visit Codes: [id number] INP/OBS CARE(HIGH) LABORER ADJUSTABLE [employer] JOIST Procedure Codes: 63870-09- NON-STRESS TEST, 87687-GPY DELIVERY ONLY COLE HENRIQUEZ CNM Jun 28, 2025 05:43
[2025-06-28] MEDS ORDERED: ACETAMINOPHEN 325 MG TAB PO PRN (05:45)
[2025-06-28 06:30] VITALS: BP 114/63; PULSE 102; RESP 20; TEMP 98.4; O2SAT 95
[2025-06-28] MEDS: AMPICILLIN INJ 1 GM in SODIUM CHL 0.9% 100 ML IV SCH (08:53)
[2025-06-28 11:00] VITALS: BP 112/69; PULSE 104; RESP 20; TEMP 98.7; O2SAT 94
[2025-06-28] MEDS: IBUPROFEN 600 MG TAB PO PRN (13:17)
[2025-06-28 15:10] VITALS: BP 100/60; PULSE 99; RESP 16; TEMP 98.4; O2SAT 96
[2025-06-28 18:53] VITALS: BP 146/62; PULSE 106; RESP 20; TEMP 98.1; O2SAT 97
[2025-06-28] MEDS ORDERED: TRANEXAMIC ACID 1,000 mg/10ml INJ VIAL IV ONE (21:39)
[2025-06-28] MEDS ORDERED: DOCUSATE SOD 100 MG CAP PO SCH (22:00)
[2025-06-28 23:25] VITALS: BP 126/66; PULSE 84; RESP 20; TEMP 98; O2SAT 97
[2025-06-29 03:14] VITALS: BP 106/66; PULSE 71; RESP 19; TEMP 98.5; O2SAT 96
[2025-06-29 07:00] VITALS: BP 111/67; PULSE 82; RESP 16; TEMP 98.1; O2SAT 98
[2025-06-29] MEDS ORDERED: IBU600T PO (09:58)
[2025-06-29 10:15] LABS: Hematocrit 27.2 % (36.0-46.0); Hemoglobin 9.2 g/dL (12.2-16.2); Mean Corpuscular Hemoglobin 32.0 pg (28.0-32.0); Mean Corpuscular Volume 94.6 fL (80.0-100.0); Nucleated Red Blood Cells % 0.1 %
[2025-06-29] MEDS ORDERED: FER325T PO (10:33)
--- NOTE | 2025-06-29 10:36 | DVHDS2 ---
Discharge Summary Date of Admission Jun 27, 2025 at 08:00 Date of Discharge: Jun 29, 2025 Admitting Diagnosis Term , in labor Labs/Diagnostic Data: Laboratory Results Test 06/29/25 09:13 06/27/25 09:09 06/27/25 08:52 06/27/25 08:51 White Blood Count 17.5 10^3/uL (4.4-10.8) Red Blood Count 2.88 10^6/uL (4.0-5.20) Hemoglobin 9.2 g/dL (12.2-16.2) Hematocrit 27.2 % (36.0-46.0) Mean Corpuscular Volume 94.6 fL (80.0-100.0) Mean Corpuscular Hemoglobin 32.0 pg (28.0-32.0) Mean Corpuscular Hemoglobin Concent 33.9 g/dL (32.0-36.0) Red Cell Distribution Width 13.3 % (11.8-14.3) Platelet Count 190 10^3/uL (140-450) Mean Platelet Volume 10.4 fL (6.9-10.8) Neutrophils (%) (Auto) 78.5 % (37.0-80.0) Lymphocytes (%) (Auto) 13.3 % (10.0-50.0) Monocytes (%) (Auto) 6.8 % (0.0-12.0) Eosinophils (%) (Auto) 1.0 % (0.0-7.0) Basophils (%) (Auto) 0.4 % (0.0-2.0) Neutrophils # (Auto) 13.7 10 ^3/uL (1.6-8.6) Lymphocytes # (Auto) 2.3 10 ^3/uL (0.4-5.4) Monocytes # (Auto) 1.2 10 ^3/uL (0-1.3) Eosinophils # (Auto) 0.2 10 ^3/uL (0-0.8) Basophils # (Auto) 0.1 10 ^3/uL (0-0.2) Nucleated Red Blood Cells 0.1 % Prothrombin Time 9.8 sec (9.3-11.8) Prothrombin Time INR 0.92 (0.9-1.15) Activated Partial Thromboplast Time 25.5 SEC (24.5-34.5) Sodium Level 140 mmol/L (136-145) Potassium Level 3.9 mmol/L (3.5-5.1) Chloride Level 106 mmol/L (98-107) Carbon Dioxide Level 22 mmol/L (20-31) Anion Gap 12 (5-15) Blood Urea Nitrogen < 5 mg/dL (9-23) Creatinine 0.64 mg/dL (0.550-1.02) Glomerular Filtration Rate Calc 123 mL/min (>90) BUN/Creatinine Ratio 7.8 (10.0-20.0) Serum Glucose 76 mg/dL (74-106) Calcium Level 8.9 mg/dL (8.7-10.4) Total Bilirubin 0.6 mg/dL (0.2-1.0) Aspartate Amino Transferase (AST) 19 U/L (13-40) Alanine Aminotransferase (ALT) 12 U/L (7-40) Alkaline Phosphatase 108 U/L (46-116) Total Protein 6.2 g/dL (5.7-8.2) Albumin 3.6 g/dL (3.2-4.8) Treponema pallidum Antibody Non-reactive (Negative) Hepatitis C Antibody Negative (Negative) Urine Opiates Screen Neg (NEGATIVE) Urine Fentanyl Screen Neg (NEGATIVE) Urine Barbiturates Screen Neg (NEGATIVE) Urine Phencyclidine Screen Neg (NEGATIVE) Urine Amphetamines Screen Neg (NEGATIVE) Urine Benzodiazepines Screen Neg (NEGATIVE) Urine Cocaine Screen Neg (NEGATIVE) Urine Cannabinoids Screen Neg (NEGATIVE) Urine Color Light-yellow (Yellow) Urine Clarity Clear (Clear) Urine pH 6.5 (5.0-9.0) Urine Specific [place] 1.015 (1.001-1.035) Urine Protein Negative (Negative) Urine Ketones Negative (Negative) Urine Blood Negative /uL (Negative) Urine Nitrite Negative (Negative) Urine Bilirubin Negative (Negative) Urine Urobilinogen Normal mg/dL (Negative) Urine Leukocyte Esterase Negative /uL (Negative) Urine RBC 1 /hpf (0 - 4) Urine Microscopic WBC 1 /HPF (0-5) Urine Squamous Epithelial Cells Few /hpf (<5) Urine Bacteria Few /hpf (None Seen) Urine Mucus Few (None Seen) Urine Glucose Normal mg/dL (Normal) Other Laboratory Tests 06/29/25 09:13 06/27/25 09:09 Brief Hx & Hospital Course: Term admitted in active labor Intrapartum tachycardia and Tmax 97F, no fever. Empirically treated w/ Amp/Gent antibiotics just before delivery and x 24 hr hb 9.2, precipitous drop in H/H. No symptoms. Afebrile. Uterus non tender No evidence of endometritis. Stable for d/c home w/ PO iron for anemia. F/U in 2 wk w/ Dr Carter Operations or Procedures Vaginal delivery uncomplicated Condition at Discharge: Stable Final Diagnosis/Problems List Term , delivered Secondary Diagnosis: Precipitous drop in H/h Discharge Disposition: Home Discharge Instruct/Medications Diet: Regular Activity: Light activity Activity comment: Pelvic rest x 6 wk Follow Up/Referral: [address] Carter Medications: N/A Scheduled Ferrous Sulfate (Ferrous Sulfate), 325 MG PO BID Metronidazole (Flagyl), 500 MG PO BID, (Reported) Metronidazole (Flagyl), 500 MG PO BID Scheduled PRN Ibuprofen Micronized (Motrin Tablet), 600 MG PO Q6HP PRN Discharge Statement: "Patient was advised to return to the ER or call 911 if any headaches, dizziness, shortness of breath, chest pain, abdominal pain, bleeding, fevers, or worsening of medical condition. Patient was counseled about treatment plan, medications, possible side effects, patientverbalized understanding. All questions were answered to the best of my ability. This discharge took greater then 30 minutes in planning, reviewing documentation, counseling the patient, and discussing with other team members." ASSESSMENT ASSESSMENT Assessment Term , delivered Visit Coding OBGYN Date of Service: Jun 29, 2025 Billing Provider: MALU SOLORIO DO INTERMEDIATE SCHOOL TEACHER Common Visit Codes: 67583-RQE/OBS DISCH DAY <30MIN MALU SOLORIO DO Jun 29, 2025 10:36
[2025-06-29 11:15] VITALS: BP 121/77; PULSE 95; RESP 20; TEMP 98; O2SAT 96
== END 2025-06-29 15:26 | disposition home or self-care (01) | DRG 807 ==
LOC: LDRP 07:50 → OBSVTOIN 08:00 → LDRP 08:01
PROVIDERS: ADMIT Obstetrics & Gynecology; ATTEND Obstetrics & Gynecology
PROC: 10E0XZZ Delivery of Products of Conception, External Approach (ICD-10-PCS; principal; 2025-06-28)
PROC: 0HQ9XZZ Repair Perineum Skin, External Approach (ICD-10-PCS; 2025-06-28)
PROC: 0W8NXZZ Division of Female Perineum, External Approach (ICD-10-PCS; 2025-06-28)
PROC: 00HU33Z Insertion of Infusion Device into Spinal Canal, Percutaneous Approach (ICD-10-PCS; 2025-06-28)
PROC: 3E0R3BZ Introduction of Anesthetic Agent into Spinal Canal, Percutaneous Approach (ICD-10-PCS; 2025-06-28)
DX: O76 Abnormality in fetal heart rate and rhythm complicating labor and delivery (principal); Z37.0 Single live birth; Z3A.37 37 weeks gestation of pregnancy; O70.0 First degree perineal laceration during delivery; O90.81 Anemia of the puerperium
CPT/HCPCS: 36415; 59025; 59409; 80053; 80307; 81001; 81002; 85025; 85610; 85730; 86780; 86803; 86850; 86900; 86901; 94760; 94762; 96360; 96361; 96365; 96366; G0378; J0131; J2540; J2590; J7060

== ENCOUNTER 2025-09-10 08:54 | Outpatient (CLI) | payer BC ==
[~2025-09-10 08:54] MED LIST changes: +FER325T PO; +IBU600T PO; -METR-344 PO
[2025-09-10 10:05] LABS: Urine Protein, UAD Negative (Negative)
[2025-09-10 10:28] LABS: Hematocrit 41.5 % (36.0-46.0); Hemoglobin 14.3 g/dL (12.2-16.2); Mean Corpuscular Hemoglobin 31.2 pg (28.0-32.0); Mean Corpuscular Volume 90.6 fL (80.0-100.0); Nucleated Red Blood Cells % 0.1 %
[2025-09-10 10:40] LABS: Iron 102.0 ug/dL (50-170)
[2025-09-10 10:43] LABS: Total Iron Binding Capacity 305.0 ug/dL (250-425)
[2025-09-10 10:44] LABS: Ferritin 30.8 ng/mL (10-291)
[2025-09-10 10:47] LABS: Albumin 4.6 g/dL (3.2-4.8); Alkaline Phosphatase 83 U/L (46-116); Anion Gap 10 (5-15); BUN/Creatinine Ratio 9.0 (10.0-20.0); Calcium 10.0 mg/dL (8.7-10.4); Carbon Dioxide 28 mmol/L (20-31); Chloride 103 mmol/L (98-107); Cholesterol 189 mg/dL (< 200); Glucose 91 mg/dL (74-106); HDL Cholesterol 56 mg/dL (40-59); Potassium 4.4 mmol/L (3.5-5.1); Sodium 141 mmol/L (136-145); Total Protein 7.5 g/dL (5.7-8.2); Triglycerides 118 mg/dL (< 150)
[2025-09-10 10:48] LABS: Alanine Aminotransferase 130 U/L (7-40); Bilirubin, Total 1.1 mg/dL (0.2-1.0); Blood Urea Nitrogen 7 mg/dL (9-23)
== END 2025-09-10 17:00 | disposition home or self-care (01) ==
LOC: LAB 08:54
PROVIDERS: ATTEND Nurse Practitioner Family
DX: E78.5 Hyperlipidemia, unspecified (principal); D64.9 Anemia, unspecified
CPT/HCPCS: 36415; 80053; 80061; 81001; 82306; 82607; 82728; 83036; 83540; 83550; 84443; 85025